=== PATIENT | female | born 1945 | race Caucasian/White ===

== ENCOUNTER 2017-06-27 12:41 | Outpatient (CLI) | payer OTHER, MEDICARE | END 2017-06-27 17:32 | disposition home or self-care (01) | LOC: SMA 12:41 | PROVIDERS: ATTEND Internal Medicine | DX: Z12.31 Encounter for screening mammogram for malignant neoplasm of breast (principal) | CPT/HCPCS: G0202 ==

== ENCOUNTER 2018-07-07 13:10 | Outpatient (CLI) | payer OTHER, MEDICARE | END 2018-07-07 20:34 | disposition home or self-care (01) | LOC: SMA 13:10 | PROVIDERS: ATTEND Internal Medicine | DX: Z12.31 Encounter for screening mammogram for malignant neoplasm of breast (principal) | CPT/HCPCS: 77067 ==

== ENCOUNTER 2019-09-23 10:27 | Outpatient (CLI) | payer OTHER, MEDICARE | END 2019-09-23 21:11 | disposition home or self-care (01) | LOC: SMA 10:27 | PROVIDERS: ATTEND Internal Medicine | DX: Z12.31 Encounter for screening mammogram for malignant neoplasm of breast (principal) | CPT/HCPCS: 77067 ==

== ENCOUNTER 2020-10-20 09:59 | Outpatient (CLI) | payer OTHER, MEDICARE | END 2020-10-20 20:50 | disposition home or self-care (01) | LOC: SMA 09:59 | PROVIDERS: ATTEND Internal Medicine | DX: Z12.31 Encounter for screening mammogram for malignant neoplasm of breast (principal) | CPT/HCPCS: 77067 ==

== ENCOUNTER 2021-11-21 10:00 | Outpatient (CLI) | payer OTHER, MEDICARE | END 2021-11-21 21:37 | disposition home or self-care (01) | LOC: SMA 10:00 | PROVIDERS: ATTEND Internal Medicine | DX: Z12.31 Encounter for screening mammogram for malignant neoplasm of breast (principal) | CPT/HCPCS: 77067 ==

== ENCOUNTER → 2022-05-25 | Outpatient (CLI) | payer OTHER, MEDICARE | END | disposition home or self-care (01) | LOC: SRD 11:26 | PROVIDERS: ATTEND Internal Medicine | DX: N63.11 Unspecified lump in the right breast, upper outer quadrant (principal); N63.24 Unspecified lump in the left breast, lower inner quadrant; R92.1 Mammographic calcification found on diagnostic imaging of breast; R92.2 Inconclusive mammogram; N63.32 Unspecified lump in axillary tail of the left breast | CPT/HCPCS: 71046-TC; 76641; 77065 ==